=== PATIENT | female | born 1990 | race Caucasian/White ===

== ENCOUNTER → 2023-08-15 19:11 | Outpatient (CLI) | payer MEDICAID, SELFPAY ==
--- NOTE | 2023-08-15 | DI.RAD_ITS ---
Exam(s) XR FOOT RT COMPLETE EXAM: XR FOOT RT COMPLETE CLINICAL HISTORY: ICD-10: M79.0671: PAIN IN THE RIGHT FOOT. TECHNIQUE: 2D digital imaging was performed. Three views. COMPARISON: No exams were available for comparison FINDINGS: BONES: No acute fracture is present. No bony destructive lesion is seen. JOINTS: No dislocation present. SOFT TISSUE: Normal. IMPRESSION: Unremarkable radiographs of the right foot. DATA REPOSITORY: RADIATION DOSE DELIVERED:
--- NOTE | 2023-08-15 19:49 | DI.VRAD_ITS ---
PROCEDURE INFORMATION: Exam: XR Right Foot Exam date and time: 08/15/2023 7:04 PM Age: 33 years old Clinical indication: Right; Patient HX: Foot pain, no trauma TECHNIQUE: Imaging protocol: Radiologic exam of the right foot. Views: 3 or more views. COMPARISON: No relevant prior studies available. FINDINGS: Bones/joints: No fracture. No dislocation. No bony erosion or destructive change. Soft tissues: No soft tissue air. No radiopaque foreign bodies. IMPRESSION: No acute osseous abnormality. If symptoms persist, follow-up imaging is advised. Dictated and Authenticated by: Miller Araujo MD. Ordering:DUNG DAVISON MD
== END ==
PROVIDERS: Visit Provider Nurse Practitioner Family
DX: M79.671 Pain in right foot (principal)
CPT/HCPCS: 73630

== ENCOUNTER 2024-03-26 10:59 | Emergency (ER) | payer MEDICAID, SELFPAY ==
[2024-03-26] VITALS (23 sets, daily range): BP systolic 98–139; BP diastolic 32–106; PULSE 61–95; RESP 14–27; TEMP 36.5–36.6; O2SAT 99–100
--- NOTE | 2024-03-26 10:45 | RT.EKG_ITS ---
APPROVED REPORT Exam: Resting ECG Reason for Exam: Syncope Patient Location: E HR:88 bpm ECG Measurements Heart Rate 88 AXIS ME 149 P 76 QRSd 79 QRS 67 QT 377 T 43 QTc 456 Conclusion Sinus rhythm 88 normal axis no stemi
--- NOTE | 2024-03-26 11:22 | W.ED.GENAD ---
Discharge Plan Disposition Patient Disposition: Transfer-Acute Inpatient Care Specific Acute Inpt Facility: [facility] Discharge Details Clinical Impression: Cardiac asystole, Syncope Primary Care Provider: Unknown,Unknown ED Provider: Barbara Roland Home Meds and New Rx's Prescriptions: No Action No Known Home Meds Discharge Data Discharge Date/Time-TO BE ENTERED AT DEPARTURE: 03/26/24 14:01 HPI General Date/Time Provider Initiated Documentation: 03/26/24 11:02. HPI Narrative: Irma is a 33year old female who presents to the emergency department today for evaluation of syncope. She reports that she fell on her way into work today, landing on her left elbow and left knee. She sustained abrasions to these. When she got into work she sat down to have a coworker apply a Band-Aid to her elbow. She felt suddenly very dizzy (no other symptoms acccompanying this) and passed out, approximately 30 sec loss of consciousness. He woke up on the floor, is currently reporting only a mild frontal headache. No dizziness while at rest, vision changes, nausea/vomiting, neck pain, chest pain, shortness of breath, cough, congestion, palpitations, abdominal pain, change in p.o. intake, change in bowel or bladder function, change in menstrual cycle, other extremity injuries. Did not eat breakfast this morning, says this is not unusual for her. Denies history of syncope or episodes of dizziness previously. No observed seizure activity reported by EMS. Past medical history is significant for recent head injury diagnosed as concussion at [facility] in [place]. Physical exam remarkable for dizziness with standing. Patient is alert and oriented, in no acute distress. No scalp injury noted. PERRL, EOMs intact. No hemotympanums. Male nerves II through XII intact as tested. Normal finger-to- finger, heel-falk; 5 out of 5 muscle strength to upper and lower extremities. Easy work of breathing, lung sounds clear bilaterally. Normal heart sounds. Abdomen soft, nondistended, nontender to palpation. D/dx includes but is not limited to: Cardiac arrhythmia, dehydration, vasovagal syncope, electrolyte imbalance, orthostatic hypotension, early , viral illness such as COVID-19, intracranial hemorrhage secondary to hitting head on ground during syncope I independently interpreted the following tests: EKG reassuring, normal sinus rhythm rate 88, no changes consistent with acute ischemia. A repeat EKG was performed after asystole, normal sinus rhythm rate 77. CBC, CMP, troponins (<4) all reassuring. TSH within normal limits. hCG negative. 1130: After having IV placed Irma became pale and dizzy, was laid back and lost consciousness. According to Clari Love RN, pt was pulseless and breathing agonally for a few seconds; patient had asystole for approximately 30 seconds based on telemetry. Episode spontaneously resolved before chest compressions could begin. She currently is awake and alert, appears pale but interactive. Discussed case with Dr. Alexander, button breaker operator at [facility]. He advises patient to be sent ED to ED for further evaluation, advises keeping atropine on hand and defibrillator pads in place. Reviewed plan of care with patient and her mother, they are agreeable with plan for transfer. Pt transferred by ambulance with relays draftsperson. Related Data Home Medications ?Medication ?Instructions ?Recorded ?Confirmed Unknown [No Known Home Meds] 03/26/24 03/26/24 Allergies Allergy/AdvReac Type Severity Reaction Status Date / Time Penicillins Allergy Severe Anaphylaxis Verified 03/26/24 12:14 General Stated Complaint: [id number] NIVIA: 3 Review of Systems Narrative: see HPI Exam Const General: cooperative, healthy appearing, comfortable, no acute distress, well developed and well groomed Nutritional Appearance: average body habitus Orientation: alert and oriented x3 HENMT Head: normal to inspection, no palpable skull fracture and normocephalic Ears: hearing grossly normal bilaterally, external ears normal and TM's normal bilaterally General nose exam: external nose normal Face and sinus: normal facial exam Mouth: oral mucosae normal Throat: posterior oropharynx normal Neck Neck: normal visual inspection and full ROM Resp Effort & Inspection: normal respiratory effort and able to speak in complete sentences Auscultation: clear to auscultation bilaterally Cardio Rate: regular rate Rhythm: regular rhythm GI Inspection: normal to inspection and non-distended Palpation: soft, not firm and nontender Skin General skin exam: no rashes or lesions noted Neuro General: patient alert, patient oriented x3, tone normal, moves all extremities, no meningeal signs, no focal motor deficits and CN's II-XI intact bilaterally Cranial Nerves: CN's II-XI intact bilaterally, PERRL, EOM intact bilaterally, no nystagmus and facial strength normal Cognition: normal cognition Speech: speech normal Motor: muscle tone normal throughout and strength 5/5 throughout Coordination: [id number] test normal and bbgc-[id number]-cach test normal Course Vital Signs Vital signs: Vital Signs Pulse 90 03/26/24 11:01 Respiratory Rate 15 03/26/24 11:01 Blood Pressure 139/106 H 03/26/24 11:01 Pulse Oximetry 100 03/26/24 11:01 Temperature 36.5 C 03/26/24 11:10 Pulse 90 03/26/24 11:01 Respiratory Rate 15 03/26/24 11:01 Blood Pressure 139/106 H 03/26/24 11:01 Blood Pressure Position Sitting 03/26/24 11:01 Pulse Oximetry 100 03/26/24 11:01 Oxygen Delivery Method Room Air 03/26/24 11:01 Oxygen Flow Rate 0 03/26/24 11:01 Medical Decision Making Quality:SDOH Health Related Social Needs: No Data to Display PFSH All Active Problems (Updated 03/26/24 @ 13:10 by Barbara Giraldo) Syncope (Chronic) Cardiac asystole (Acute) Social History Smoking/Tobacco Use Status: Never Smoking risk assessment performed?: Yes Alcohol Intake: never Drug use: Never Substance use type: does not use Housing: apartment Do you feel safe at home: Yes Do you feel safe in your relationship?: No
--- NOTE | 2024-03-26 11:30 | RT.EKG_ITS ---
APPROVED REPORT Exam: Resting ECG Reason for Exam: syncope after IV Patient Location: E HR:77 bpm ECG Measurements Heart Rate 77 AXIS AK 156 P 81 QRSd 85 QRS 63 QT 410 T 48 QTc 464 Conclusion Sinus rhythm 77 normal axis no stemi
--- NOTE | 2024-03-26 11:32 | W.EDPROG ---
Date of service: 03/26/24 Time of Service: 11:32 Medical Decision Making Case discussed with nurse practitioner. A [id number] evaluation was performed by me secondary to medical complexity. Patient is an otherwise healthy 33-year-old female without significant past medical history. She presented for evaluation of a syncopal episode. While in the emergency department, she went unresponsive and was noted on telemetry, that the patient had a fairly notable length of asystole. Nurse at bedside was unable to feel a pulse. When we arrived in the room, the patient appeared rubin and was awake. Heart rate was noted to be significantly low in the 30s. Although the patient had just received an IV, the IV had been in place for several seconds perhaps minutes before this episode took place. Although this could be vasovagal, it is highly concerning given the prolonged nature of the systole. Given this, cardiology at [facility] was consulted and the patient will be transferred there for further emergent evaluation. Quality:SDOH Health Related Social Needs: No Data to Display Critical Care Time Critical Care Time Critical Care Time: Yes Total Critical Care Time: 33 Attestation: CRITICAL CARE Upon my evaluation, this patient had a high probability of imminent or life-threatening deterioration due to cardiac dysrhythmia which required my direct attention, intervention, and personal management. I have personally provided 33 minutes of critical care time exclusive of time spent on separately billable procedures. Time includes review of laboratory data, radiology results, discussion with consultants, and monitoring for potential decompensation. Interventions were performed as documented above Discharge Plan Disposition Patient Disposition: Transfer-Acute Inpatient Care Specific Acute Inpt Facility: [facility] Discharge Details Clinical Impression: Cardiac asystole, Syncope ED Provider: Barbara Roland Home Meds and New Rx's Prescriptions: No Action No Known Home Meds
--- NOTE | 2024-03-26 11:36 | DI.RAD_ITS ---
Exam(s) XR CHEST 1V IN DI DEPT EXAM: XR CHEST 1V IN DI DEPT CLINICAL HISTORY: syncope TECHNIQUE: 2D digital imaging was performed of the chest. One image was obtained. An AP view was ob tained. COMPARISON: No exams were available for comparison FINDINGS: MEDIASTINUM: Normal. HEART: Normal. PULMONARY VASCULATURE: Normal. LUNGS: Clear. PLEURAL SPACE: No pleural effusion or pneumothorax. BONE:Within normal limits for the patient's age. OTHER FINDINGS:Normal. IMPRESSION: No acute pulmonary findings. DATA REPOSITORY: RADIATION DOSE DELIVERED:
[2024-03-26 11:44] LABS: Abs Immature Grans 0.02 10^3/uL (0.0-0.06); Absolute Basophil Count 0.05 10^3/uL (0.0-0.2); Absolute Lymphocyte Count 1.44 10^3/uL (1.2-3.4); Absolute Monocyte Count 0.63 10^3/uL (0.1-0.8); Absolute Neutrophil Count 5.33 10^3/uL (1.2-6.7); Basophils % 0.7 %; Eosinophils % 1.3 %; HCT 44.3 % (36.0-46.0); HGB 14.4 g/dL (11.2-15.7); Immature Grans % 0.3 %; MCH 30.4 pg (27.0-33.0); MCHC 32.5 % (32.0-36.0); MCV 94 fL (80-95); MPV 9.3 fL (8.0-11.0); Monocytes % 8.3 %; Neutrophils % 70.4 %; Platelet Count 332 10^3/uL (130-400); RBC 4.73 10^6/uL (3.93-5.22); RDW-SD 41.7 fL; WBC 7.57 10^3/uL (4.4-10.8)
--- NOTE | 2024-03-26 11:52 | DI.CT_ITS ---
Exam(s) CT HEAD WO EXAM: CT HEAD WO CLINICAL HISTORY: head strike after syncope. TECHNIQUE: Imaging Protocol: Axial computed tomography images with coronal and sagittal reformatted images were created and reviewed COMPARISON: No exams were available for comparison FINDINGS: Ventricles and Extra axial spaces: Normal in size and morphology for the patient's age. Hemorrhage: None. Cerebral parenchyma: Normal. Midline shift: None. Brainstem/Cerebellum: Normal. Calvarium: Normal. Visualized Paranasal sinuses/Mastoids: Clear. Soft Tissues: Unremarkable. IMPRESSION: No acute intracranial process. RADIATION DOSE DELIVERED: 824.77mGy.cm Total DLP DATA REPOSITORY: All CT scans at this facility are submitted to the National Radiology Data Registry (NRDR) Dose Index Registry (DIR) with the [employer] (A[employer]). RADIATION OPTIMIZATION: All CT scans at this facility use at least one of these dose optimization te chniques: automated exposure control; mA and/or kV adjustment per patient size (includes targeted exa ms where dose is matched to clinical indication); or iterative reconstruction.
[2024-03-26 11:59] LABS: HCG Qual (Serum) Negative
[2024-03-26 12:17] LABS: ALT 19 U/L (14-59); AST 11 U/L (15-37); Albumin 3.8 g/dL (3.4-5.0); Alkaline Phosphatase 65 U/L (46-116); Anion Gap 8.1 mmol/L (3-11); BUN 8 mg/dL (7-18); Bilirubin, Total 0.23 mg/dL (0.2-1.0); CO2 27.9 mmol/L (21.0-32.0); CREATININE 0.8 mg/dL (0.55-1.02); Calcium 8.7 mg/dL (8.5-10.1); Chloride 107 mmol/L (98-107); Estimated GFR 100.33 (mL/min/1.73m2); Glucose 114 mg/dL (74-106); Sodium 143 mmol/L (136-145); Troponin I < 4 ng/L (<or=51)
[2024-03-26 12:50] LABS: Creatine Kinase 60 U/L (26-192); TSH 0.74 uIU/mL (0.36-3.74)
[2024-03-26 12:54] LABS: Troponin I < 4 ng/L (<or=51)
== END 2024-03-26 14:01 | disposition short-term general hospital (02) ==
LOC: ER 14:18
PROVIDERS: Emergency Medicine; Emergency Provider Nurse Practitioner Family
DX: I46.9 Cardiac arrest, cause unspecified (principal); R55 Syncope and collapse; S50.312A Abrasion of left elbow, initial encounter; S80.212A Abrasion, left knee, initial encounter; W18.39XA Other fall on same level, initial encounter; Y93.89 Activity, other specified; Y92.89 Other specified places as the place of occurrence of the external cause
CPT/HCPCS: 00123; 80053; 82550; 82962; 87426; 93005; 99285; 70450; 71045; 83735; 84443; 84484; 84703; 85025; 93010

== ENCOUNTER 2024-05-10 10:27 | Observation (INO) | payer MEDICAID, SELFPAY ==
[2024-05-10] VITALS (27 sets, daily range): BP systolic 93–136; BP diastolic 43–82; PULSE 81–109; RESP 13–26; TEMP 36–37.3; O2SAT 97–100
--- NOTE | 2024-05-10 10:30 | RT.EKG_ITS ---
APPROVED REPORT Exam: Resting ECG Reason for Exam: dizziness Patient Location: E HR:86 bpm ECG Measurements Heart Rate 86 AXIS IN 136 P 32 QRSd 76 QRS 71 QT 379 T 20 QTc 453 Conclusion Sinus rhythm...normal P axis, V-rate 60- 99
[2024-05-10 10:58] LABS: Abs Immature Grans 0.02 10^3/uL (0.0-0.06); Absolute Basophil Count 0.07 10^3/uL (0.0-0.2); Absolute Eosinophil Count 0.26 10^3/uL (0.0-0.7); Absolute Lymphocyte Count 1.93 10^3/uL (1.2-3.4); Absolute Monocyte Count 0.65 10^3/uL (0.1-0.8); Absolute Neutrophil Count 4.52 10^3/uL (1.2-6.7); Basophils % 0.9 %; Eosinophils % 3.5 %; Immature Grans % 0.3 %; Lymphocytes % 25.9 %; MCH 30.9 pg (27.0-33.0); MCHC 33.3 % (32.0-36.0); MCV 93 fL (80-95); MPV 9.3 fL (8.0-11.0); Monocytes % 8.7 %; Neutrophils % 60.7 %; Platelet Count 349 10^3/uL (130-400); RBC 2.91 10^6/uL (3.93-5.22); RDW 12.2 % (11.7-14.6); WBC 7.45 10^3/uL (4.4-10.8)
--- NOTE | 2024-05-10 10:58 | ED.GENADUL_ITS ---
Discharge Plan Disposition Patient Disposition: Admit to [facility] Discharge Details Clinical Impression: Syncope, Anemia due to blood loss, acute, Acute GI bleeding Admit Date/Time: 05/10/24 11:44 Admit Provider: Darien Rodríguez Attending Provider: Darien Rodríguez Primary Care Provider: None,None ED Provider: Jovanni Perez Discharge Data Discharge Date/Time-TO BE ENTERED AT DEPARTURE: 05/10/24 12:21 HPI General Mode of arrival: ambulatory . Date/Time Provider Initiated Documentation: 05/10/24 10:33 . Limitations to Documentation: no limitations . Information obtained by: patient and family . HPI Narrative: 33-year-old female presents with chief complaint of dizziness. Patient was seen here in the emergency department after syncopal episode 03/26/2024. Syncope apparently it happened after slip and fall at work and while having her elbow bandaged. Here in the emergency department she had a witnessed sinus pause that was prolonged. She was transferred to [facility] for further cardiac evaluation. There she had an echocardiogram that was reassuring. She was seen by cardiology and observed in the CDU. It was felt that her episode was vasovagal syncope. She was discharged with plan for Zio patch monitoring which has not yet been performed. She notes since that time symptoms did seem to improve somewhat over initially. However over the past week she has noticed intermittent dizziness worse with standing for prolonged periods and improved with sitting and lying down. She also notes new onset of rectal bleeding over the past 1 week. She notes with every bowel movement she has bright red blood per rectum. She has noticed recently some clots mixed in with the bloody stool. She is also menstruating. She has not had any recurrent syncopal episodes but has had presyncope. She denies chest pain or shortness of breath. No abdominal pain. She has had some mild rectal discomfort. Patient was seen at outside clinic this week and found to have a hemorrhoid. It was unclear during that visit if that was the source of her rectal bleeding. Related Data Home Medications ?Medication ?Instructions ?Recorded ?Confirmed Unknown [No Known Home Meds] 03/26/24 05/10/24 Allergies Allergy/AdvReac Type Severity Reaction Status Date / Time Penicillins Allergy Severe Anaphylaxis Verified 05/10/24 10:58 General Stated Complaint: Dizzy/Sync NIVIA: 3 Review of Systems All systems reviewed & are unremarkable except as noted in HPI and below Constitutional Constitutional: Denies fever(s) Gastrointestinal Gastrointestinal: Reports as per HPI and Denies abdominal pain Exam Const General: cooperative and no acute distress [facility] Mouth: moist mucous membranes Eyes Conjunctivae: normal conjunctivae Sclera: normal sclerae Neck Neck: trachea midline Resp Auscultation: clear to auscultation bilaterally, no rales, no rhonchi and no wheezes Cardio Rate: regular rate and not tachycardic Rhythm: regular rhythm GI Palpation: soft, not firm, no guarding, no masses, not rigid and nontender Rectal Exam - female: visual inspection normal (performed with female RN change management administrator present ) Other: no bleeding evident on external exam Skin General skin exam: pallor Neuro General: patient alert, patient awake, patient oriented x3 and tone normal Extrem General: no edema Psych Appearance: grossly normal Mental Status: mental status grossly normal Course Vital Signs Vital signs: Vital Signs Pulse 93 H 05/10/24 10:32 Respiratory Rate 15 05/10/24 10:32 Blood Pressure 136/46 L 05/10/24 10:32 Pulse Oximetry 100 05/10/24 10:32 Temperature Source Tympanic 05/10/24 10:32 Pulse 93 H 05/10/24 10:32 Respiratory Rate 16 05/10/24 10:42 Respiratory Effort Normal 05/10/24 10:42 Respiratory Depth Normal 05/10/24 10:42 Respiratory Pattern Normal 05/10/24 10:42 Blood Pressure 136/46 L 05/10/24 10:32 Blood Pressure Position Supine 05/10/24 10:32 Pulse Oximetry 100 05/10/24 10:32 Oxygen Delivery Method Room Air 05/10/24 10:32 Oxygen Flow Rate 0 05/10/24 10:32 Pain Level 0 05/10/24 10:32 Medical Decision Making 1103 --33-year-old female here with presyncope, bright red blood per rectum with clots over the past 1 week. Patient is hemodynamically stable. She does appear pale. Of note, patient was seen here in the Emergency Department 03/26/2024 and transferred to [facility] for cardiac workup for syncope and subsequent systolic pause. Workup at [facility] was nondiagnostic and presentation was thought to be secondary to vasovagal episodes. Screening EKG was reviewed and interpreted by me: Please report, sinus rhythm 86 bpm, normal axis, nondiagnostic. -- Labs reviewed and anemia noted -- OSH medical records were reviewed-- discharge summary from recent [facility] hospitalization reviewed. -- I spoke with Dr. Rodríguez, director of first impressions surgeon, discussed ED presentation and course. He will admit the patient with plan to scope. DX: acute GI bleeed, acute anemia due to GI bleed, syncope Lab Data Lab results reviewed: Yes I reviewed the patient's lab results. Quality:SDOH Health Related Social Needs: Health related social needs education (Z55.6) PFSH All Active Problems (Updated 05/22/24 @ 07:22 by Jovanni Perez MD) Acute GI bleeding (Acute) Anemia due to blood loss, acute (Acute) Syncope (Chronic) Medical History (Updated 05/22/24 @ 07:22 by Jovanni Perez MD) Gastrointestinal hemorrhage Surgical History (Updated 05/13/24 @ 13:28 by Anita Arredondo) History of esophagogastroduodenoscopy (EGD) (~05/2024) History of colonoscopy (~05/13/24) Social History Smoking/Tobacco Use Status: Never Smoking risk assessment performed?: Yes Alcohol Intake: never Drug use: Never Substance use type: does not use Housing: apartment Do you feel safe at home: Yes Do you feel safe in your relationship?: No
[2024-05-10 11:17] LABS: ALT 16 U/L (14-59); AST 12 U/L (15-37); Albumin 3.1 g/dL (3.4-5.0); Alkaline Phosphatase 53 U/L (46-116); Anion Gap 7.4 mmol/L (3-11); BUN 9 mg/dL (7-18); CO2 28.6 mmol/L (21.0-32.0); CREATININE 0.8 mg/dL (0.55-1.02); Calcium 7.6 mg/dL (8.5-10.1); Chloride 107 mmol/L (98-107); Estimated GFR 100.33 (mL/min/1.73m2); Glucose 92 mg/dL (74-106); Magnesium 1.9 mg/dL (1.8-2.4); Potassium 3.6 mmol/L (3.5-5.1); Sodium 143 mmol/L (136-145); Total Protein 6.3 g/dL (6.4-8.2); Troponin I 5 ng/L (<or=51)
--- NOTE | 2024-05-10 11:46 | W.PM.HP.N ---
Date of service: 05/10/24 Time of Service: 11:46 Assessment and Plan Assessment and plan (1) Gastrointestinal hemorrhage: Status: Chronic Assessment and plan: It is challenging to say exactly where the blood is coming from, although she does have some signs of hemorrhoid disease, I would not expect hemoglobin all the way down to 9 from simple hemorrhoids in an otherwise young healthy person. I suppose this could be compounded by menstruation, although it is difficult to say based on her exam at the bedside. Although I do not see any compelling reason to transfuse her at this point, certainly her history of syncope or near syncope is important. For now, we will plan to repeat a hemoglobin in the morning, and transfuse if needed. If she has any other signs of active bleeding, then it is probably in her best interest to undergo EGD and colonoscopy prior to discharge. History of Present Illness History of Present Illness Chief Complaint: Anemia Narrative: Irma is 33 years old. She came to the emergency department today because of feeling lightheaded and dizzy. She says this has been going on for several days and getting worse. And upon review of systems, it sounds like this is preceded by some blood associated with her bowel movements. Irma tells me she had been feeling about in her usual state of health until Monday of last week when she developed a little bit of abdominal discomfort and cramping that seem consistent with previous episodes of menstruation. She thinks she started her period on Monday, or perhaps Monday. It sounds like around that time, or maybe into Monday she noticed that she might be having some blood associated with her stools as well. She noticed the blood in the toilet, and thinks the first time was after a bowel movement, but she was not certain if it was bleeding from her menstruation. This occurred about 2 or 3 more times over the course of a day, and it sounds like maybe Monday or Monday she discussed this with her mother. Mom suggested that she use a tampon to see if that could isolate menstrual blood from other bleeding. She cannot recall whether or not this actually worked. She did go to an urgent care sometime earlier this week, and especially understands, she was diagnosed with a hemorrhoid. She was told that she would have outpatient blood work, but that did not occur. She started becoming more fatigued, and a little bit lightheaded, and she was worried that she might pass out over the past 48 hours. That was the real reason that she came to the emergency department. This is all little bit confounded by an ER visit that occurred at the end of March. She tells me at that time, she was on her way to work when she thinks she slipped on some ice. She had a contusion on her left elbow, and perhaps a little bit of bleeding that one of her coworkers was helping to take care of when she had a syncopal episode. They called 911, and she was brought to the emergency department by ambulance. She remembers waking up in the ambulance and coming to the emergency department. She tells me that when she was having blood drawn in the emergency department, and an IV established she felt lightheaded and dizzy, then passed out again. At that time, the ER nurse was also concerned about some asystole on the monitor that was associated with the episode. They estimate that she was asystolic for about 30 seconds. At that time, the emergency department contacted [facility] and discussed it with her rubber heel and sole press tender. She was transferred to [facility] for observation. She underwent an echocardiogram which appears normal, and was observed overnight. She was discharged the next day, and was supposed to have a classroom monitor, although that has not yet occurred. The diagnosis at the time of discharge was vasovagal response resulting in syncope. Her and her mom tell me that they have not yet undergone the cardiac monitoring because the order was placed incorrectly. Review of systems is otherwise significant for headaches, but otherwise she feels fine. There is no clear family history of GI inflammatory diseases such as Crohn's disease or ulcerative colitis. She has never had any abdominal surgeries. Aside from the overnight stay at [facility], she does not have any other hospitalizations. She is allergic to penicillin Review of Systems Constitutional Constitutional: Denies chills, Reports fatigue, Denies fever(s), Reports headache(s) and Reports lethargy Eyes Eyes: Reports system reviewed and no additional complaints, except as documented ENT Ears, Nose, Mouth, and Throat: Reports system reviewed and no additional complaints, except as documented, Reports dizziness and Reports headache(s) Cardiovascular Cardiovascular: Denies chest pain and Denies dyspnea Respiratory Respiratory: Denies chest congestion, Denies cough and Denies dyspnea Gastrointestinal Gastrointestinal: Denies abdominal pain, Denies bloating, Reports hematochezia, Denies dyspepsia, Denies heartburn, Denies nausea and Denies vomiting Genitourinary Genitourinary: Reports system reviewed and no additional complaints, except as documented Neurologic Neurologic: Reports dizziness and Reports headache(s) Psychiatric Psychiatric: Reports system reviewed and no additional complaints, except as documented Endocrine Endocrine: Reports fatigue Hematologic/Lymphatic Hematologic/Lymphatic: Denies easy bleeding and Denies easy bruising PFSH All Active Problems (Updated 05/10/24 @ 17:11 by Darien Rodríguez MD) Gastrointestinal hemorrhage (Chronic) Social History Smoking/Tobacco Use Status: Never Smoking risk assessment performed?: Yes Alcohol Intake: never Drug use: Never Substance use type: does not use Housing: apartment Do you feel safe at home: Yes Do you feel safe in your relationship?: No Meds Allergies and Home Medications Allergies Allergy/AdvReac Type Severity Reaction Status Date / Time Penicillins Allergy Severe Anaphylaxis Verified 05/10/24 10:58 Home Medications ?Medication ?Instructions ?Recorded ?Confirmed ?Type Unknown [No Known Home Meds] 03/26/24 05/10/24 History Exam Const General: cooperative and no acute distress Nutritional Appearance: thin Orientation: awake and oriented x3 HENMT Head: normal to inspection Eyes General: appearance normal, both eyes and all related structures Neck Neck: normal visual inspection, full ROM and no lymphadenopathy Resp Effort & Inspection: normal respiratory effort and able to speak in complete sentences Auscultation: clear to auscultation bilaterally Cardio Rate: regular rate Rhythm: regular rhythm Heart Sounds: S1 normal and S2 normal GI Inspection: normal to inspection and non-distended Palpation: soft, no guarding and nontender Auscultation: normal bowel sounds Rectal Exam - female: visual inspection normal, No fissure, heme positive stool, hemorrhoids and No tenderness Skin General skin exam: pallor Results Labs 05/10/24 10:49 05/10/24 10:49 Labs: Laboratory Results - last 24 hr 05/10/24 05/10/24 10:49 10:55 WBC 7.45 RBC 2.91 L Hgb 9.0 L Hct 27.0 L MCV 93 MCH 30.9 MCHC 33.3 RDW 12.2 Plt Count 349 MPV 9.3 Immature Gran % 0.3 Neutrophils % 60.7 Lymphocytes % 25.9 Monocytes % 8.7 Eosinophils % 3.5 Basophils % 0.9 Nucleated RBC % 0.0 Absolute Neutrophils 4.52 Absolute Lymphocytes 1.93 Absolute Monocytes 0.65 Absolute Eosinophils 0.26 Absolute Basophils 0.07 Sodium 143 Potassium 3.6 Chloride 107 Carbon Dioxide 28.6 Anion Gap 7.4 BUN 9 Creatinine 0.8 Est GFR (CKD-EPI 2020) 100.33 Glucose 92 Calcium 7.6 L Magnesium 1.9 Total Bilirubin 0.20 AST 12 L ALT 16 Alkaline Phosphatase 53 Troponin I 5 Total Protein 6.3 L Albumin 3.1 L ABO/Rh O Positive Antibody Screen NEGATIVE Last Vital Signs Pulse 93 H 05/10/24 10:32 Resp 16 05/10/24 10:42 BP 136/46 L 05/10/24 10:32 Pulse Ox 100 05/10/24 10:32 Time Spent Time spent with Patient: >75 minutes Time was spent: preparing to see the patient(eg.review tests), obtaining and/or reviewing separately otained hiistory, ordering medications,tests, procedures, referring, communicating with other health child care development specialist, indepentently interpreting results, counseling the patient and care coordination
--- NOTE | 2024-05-10 12:14 | W.PC.ACHO ---
Registration Status: Primary Language: Preferred Language: ED Information & Data Chief Complaint Dizzy/Sync 05/10/24 11:06 Triage Note Poor historian. Fell, hit 05/10/24 10:32 her head in Nov had a concussion. Was sent to [facility] [place] , was there overnight. Dizziness/lightheaded has been happening all week, got worse today. Has had recent rectal bleed, has had clots in the toilet. Nausea ( slight), no abd pain. Most Recent Vital Signs Temperature Source Tympanic 05/10/24 10:32 Pulse 93 H 05/10/24 10:32 Respiratory Rate 16 05/10/24 10:42 Respiratory Effort Normal 05/10/24 10:42 Respiratory Depth Normal 05/10/24 10:42 Respiratory Pattern Normal 05/10/24 10:42 Blood Pressure 136/46 L 05/10/24 10:32 Blood Pressure Position Supine 05/10/24 10:32 Pulse Oximetry 100 05/10/24 10:32 Oxygen Delivery Method Room Air 05/10/24 10:32 Oxygen Flow Rate 0 05/10/24 10:32 Pain Level 0 05/10/24 10:32 Allergies Penicillins Allergy (Severe, Verified 05/10/24 10:58) Anaphylaxis Pt reported deathly allergic IV IV Catheter Type [Left Saline Lock Antecubital] IV Catheter Gauge [Left 18 Antecubital] Diagnostics 05/10/24 05/10/24 05/10/24 Range/Units 11:46 10:55 10:49 WBC 7.45 (4.4-10.8) 10^3/uL RBC 2.91 L (3.93-5.22) 10^6/uL Hgb 9.0 L (11.2-15.7) g/dL Hct 27.0 L (36.0-46.0) % MCV 93 (80-95) fL MCH 30.9 (27.0-33.0) pg MCHC 33.3 (32.0-36.0) % RDW 12.2 (11.7-14.6) % Plt Count 349 (130-400) 10^3/uL MPV 9.3 (8.0-11.0) fL Immature Gran % 0.3 % Neutrophils % 60.7 % Lymphocytes % 25.9 % Monocytes % 8.7 % Eosinophils % 3.5 % Basophils % 0.9 % Nucleated RBC % 0.0 (0.0-0.3) % Absolute Neutrophils 4.52 (1.2-6.7) 10^3/uL Absolute Lymphocytes 1.93 (1.2-3.4) 10^3/uL Absolute Monocytes 0.65 (0.1-0.8) 10^3/uL Absolute Eosinophils 0.26 (0.0-0.7) 10^3/uL Absolute Basophils 0.07 (0.0-0.2) 10^3/uL Sodium 143 (136-145) mmol/L Potassium 3.6 (3.5-5.1) mmol/L Chloride 107 (98-107) mmol/L Carbon Dioxide 28.6 (21.0-32.0) mmol/L Anion Gap 7.4 (3-11) mmol/L BUN 9 (7-18) mg/dL Creatinine 0.8 (0.55-1.02) mg/dL Est GFR (CKD-EPI 2020) 100.33 (mL/min/1.73m2) Glucose 92 (74-106) mg/dL Calcium 7.6 L (8.5-10.1) mg/dL Magnesium 1.9 (1.8-2.4) mg/dL Total Bilirubin 0.20 (0.2-1.0) mg/dL AST 12 L (15-37) U/L ALT 16 (14-59) U/L Alkaline Phosphatase 53 (46-116) U/L Troponin I Pending 5 (<or=51) ng/L Total Protein 6.3 L (6.4-8.2) g/dL Albumin 3.1 L (3.4-5.0) g/dL ABO/Rh O Positive Antibody Screen NEGATIVE [id number] Documentation POC Urine Test Start: 05/10/24 10:55 Freq: .Urine Test Status: Active Protocol: Activity Type Activity Date Activity User E-sign Co-sign Detail Recorded Client Recorded Date Recorded By Document 05/10/24 12:02 N.CLE [id number] 05/10/24 12:03 NHannahCLE Intake and Output - 24 Hour Total 05/10/24 10:27 thru 05/10/24 10:32 Weight 61.6 kg Falls Risk Assessment History of Falls No History 05/10/24 10:42 Contributing Factors No Factors 05/10/24 10:42 Ambulatory Aids Independent 05/10/24 10:42 Tubes/Lines None 05/10/24 10:42 Gait Evaluation No gait disturbance 05/10/24 10:42 Cognition No cognitive impairment 05/10/24 10:42 Fall Total Score 0 05/10/24 10:42 Level of Risk Standard/Low Risk 05/10/24 10:42 v v v v v v v v v Sending and/or Receiving Nurses: Please use comment section below to note any information pertinent to the patient hand-off not included above. Information / Comments: Report received from: Chris Jackson RN @ [id number]
[2024-05-10 12:17] LABS: Troponin I 4 ng/L (<or=51)
[2024-05-10] MEDS: Pantoprazole 40 MG VIAL IVP (13:07)
[2024-05-10 18:00] LABS: HGB 7.9 g/dL (11.2-15.7)
[2024-05-10 18:11] LABS: Prothrombin Time 10.3 sec (9.1-11.1)
[2024-05-10] MEDS: Normal Saline Flush 10 ML SYR IVP (20:00)
[2024-05-11] VITALS (60 sets, daily range): BP systolic 82–114; BP diastolic 36–70; PULSE 75–108; RESP 16–24; TEMP 36.5–37.6; O2SAT 96–100; BMI 21.2
[2024-05-11 06:24] LABS: HGB 9.4 g/dL (11.2-15.7)
--- NOTE | 2024-05-11 07:12 | ANES.PREOP_ITS ---
General Info Date of Service Date Performed: 05/11/24 Height: 5 ft 7 in Weight: 61.6 kg Body Mass Index (BMI): 21.2 Meds Allergies and Home Medications Allergies Allergy/AdvReac Type Severity Reaction Status Date / Time Penicillins Allergy Severe Anaphylaxis Verified 05/10/24 10:58 Home Medication ?Medication ?Instructions ?Recorded Unknown [No Known Home Meds] 03/26/24 Current Visit Medications: Current Medications Generic Name Dose Route Start Last Admin Trade Name Freq PRN Reason Stop Dose Admin IV Miscellaneous Supplies 1 each 05/10/24 12:15 Iv Access IV DIRECTED ALDEN Morphine Sulfate 2 mg 05/10/24 12:15 Morphine 2 Mg/Ml Syr IVP Q1H PRN PRN Ondansetron HCl 4 mg 05/10/24 12:15 Ondansetron 4 Mg/2 Ml Vial IVP Q4H PRN PRN Pantoprazole Sodium 40 mg 05/10/24 12:15 05/10/24 13:07 Pantoprazole 40 Mg Vial IVP 40 mg DAILY ALDEN Administration Sodium Chloride 0 ml 05/10/24 12:15 Normal Saline Flush 10 Ml Syr IVP PRN PRN Sodium Chloride 0 ml 05/10/24 20:00 05/10/24 20:00 Normal Saline Flush 10 Ml Syr IVP 10 ml BID ALDEN Administration Sodium Chloride 0 ml 05/10/24 12:15 Normal Saline 10 Ml Vial IJ DIRECTED PRN PFSH Active Problems Active Problems: Problem Status Onset Code Gastrointestinal hemorrhage Chronic K92.2 Tobacco Smoking/Tobacco Use Status: Never Alcohol Alcohol Intake: never Substance Use Substance use: Never Substance use type: does not use Vital Signs and Lab Results Vital Signs Most Recent Vital Signs in EMR: Most Recent Vital Signs Temp Pulse Resp BP Pulse Ox 37.2 C 86 16 98/63 L 97 05/11/24 03:19 05/11/24 03:19 05/11/24 03:19 05/11/24 03:19 05/11/24 03:19 Point of Care Results Point of Care Results: POC- Test(urine) Negative 05/10/24 12:02 Lab Results 05/11/24 05:49 05/10/24 10:49 Blood Type / Crossmatch: 2 Antibody Screen NEGATIVE 05/10/24 Crossmatch See Detail 05/10/24 Complete Blood Count: 2 White Blood Count 7.45 10^3/uL (4.4-10.8) 05/10/24 10:49 Red Blood Count 2.91 10^6/uL (3.93-5.22) L 05/10/24 10:49 Hemoglobin 9.4 g/dL (11.2-15.7) L 05/11/24 05:49 Hematocrit 27.0 % (36.0-46.0) L 05/10/24 10:49 Platelet Count 349 10^3/uL (130-400) 05/10/24 10:49 Complete Metabolic Panel: 2 Sodium 143 mmol/L (136-145) 05/10/24 10:49 Potassium 3.6 mmol/L (3.5-5.1) 05/10/24 10:49 Chloride 107 mmol/L (98-107) 05/10/24 10:49 Carbon Dioxide 28.6 mmol/L (21.0-32.0) 05/10/24 10:49 BUN 9 mg/dL (7-18) 05/10/24 10:49 Creatinine 0.8 mg/dL (0.55-1.02) 05/10/24 10:49 Est GFR (CKD-EPI 2020) 100.33 (mL/min/1.73m2) 05/10/24 10:49 Magnesium 1.9 mg/dL (1.8-2.4) 05/10/24 10:49 Calcium 7.6 mg/dL (8.5-10.1) L 05/10/24 10:49 Albumin 3.1 g/dL (3.4-5.0) L 05/10/24 10:49 Glucose 92 mg/dL (74-106) 05/10/24 10:49 Liver Function Panel: 2 Alanine Aminotransferase (ALT/SGPT) 16 U/L (14-59) 05/10/24 10: 49 Aspartate Amino Transf (AST/SGOT) 12 U/L (15-37) L 05/10/24 10: 49 Coagulation Panel: 2 INR International Normalized Ratio 1.0 (0.9-1.1) 05/10/24 17:5 5 Prothrombin Time 10.3 sec (9.1-11.1) 05/10/24 17:55 Cardiac Panel: 2 Troponin I 4 ng/L (<or=51) 05/10/24 Arterial Blood Gas: 2 No Data to Display Venous Blood Gas: 2 No Data to Display Pancreas Panel: 2 No Data to Display Thyroid Panel: 2 No Data to Display Infectious Disease: 2 No Data to Display Blood Cultures: 2 No Data to Display Toxicology Panel: 2 No Data to Display Panel: 2 No Data to Display Anesthesia Assessment and Plan Anesthesia History Personal History: No History of Anesthesia Complications Family History: No Family History of Anesthesia Complications Exercise Tolerance Exercise Tolerance: Metabolic Equivalents>4 Cardiac & Pulmonary Exam Cardiac Exam: Normal S1/S2 Heart Sounds Pulmonary Exam: Clear Bilateral Breath Sounds Implantable Cardiac Device Does patient have a Pacemaker or an ICD?: No Airway Exam Known Difficult Airway: No Mallampati Class: 1 Mouth Opening: Normal (> 3cm) Thyromental Distance: Greater than 3 cm Neck Range of Motion: Full ROM Neck Circumference: Normal Teeth Condition: Normal Dentition Airway Comments: Very narrow mouth, prominent front teeth. ASA Classification ASA Score: ASA 2 Emergency Case?: No NPO Status NPO Status: NPO Clears >2 hours, Solids >8 hours Status Status: Negative HCG Anesthesia Plan Resuscitation Status: Full Code Anesthesia Technique: General Anesthesia Airway Planned: Natural Airway Monitors Used: Standard Monitors Preoperative Comments:: 33 yo female for EGD. presented to ED on 05/10 with dizziness found to be with low Hgb. She was in the ED a few months ago with a syncopate episode and found to have sinus pauses/asystolic events. [place] [facility] [place]. She was recommended to do outpatient cardiac monitoring but she has not completed this yet. She was discharged [place] [facility] [place] with diagnosis of vasovagal. She received 1 unit of PRBCs yesterday. She denies having the same feeling as the time that she had her syncopal episode. Sig PMHx: sinus pauses, otherwise unremarkable. ECHO: LVEF 63%, normal valves. EKG: sinus Denies GERD, Appropriately NPO, currently hungry.
[2024-05-11] MEDS: Pantoprazole 40 MG VIAL IVP (08:01)
[2024-05-11] MEDS: Normal Saline Flush 10 ML SYR IVP ×2 (08:01→19:31)
[2024-05-11] MEDS: Lactated Ringers 1,000 ML 30 ML IV (09:49)
--- NOTE | 2024-05-11 10:19 | W.ANESPOSTOP ---
Postoperative Evaluation Date, Time and Location Date Performed: 05/11/24 Time Performed: 10:19 Patient Location: PACU Vital Signs Most Recent Imported Vital Signs: Most Recent Vital Signs Temp Pulse Resp BP Pulse Ox 37.1 C 86 16 109/65 96 05/11/24 08:00 05/11/24 07:13 05/11/24 07:13 05/11/24 07:13 05/11/24 07:13 Pain Score Most Recent Pain Score: Most Recent Pain Score Pain Level [generalized] 0 05/10/24 17:26 Pain Level 0 05/10/24 15:31 Assessment Mental Status: Awake (Alert & Oriented to Patient Baseline) Airway and Respiratory Function: Patent airway with normal (patient baseline) respiratory exam Cardiovascular Function: Hemodynamically Stable Hydration Status: Adequately Hydrated Nausea & Vomiting: No Nausea or Vomiting Pain: Pt. Denies Any Pain Peripheral Nerve Block: Patient did not receive a nerve block
--- NOTE | 2024-05-11 10:22 | PGE_ITS ---
Date of Service Date of service: 05/11/24 Time of Service: 09:30 Assessment and Plan Assessment and plan (1) Gastrointestinal hemorrhage: Status: Acute Assessment and plan: 33-year-old woman with GI bleeding of unknown etiology or significance. She did get a unit of blood but has not been hemodynamically unstable. Her hemoglobin is up from last night post?transfusion. There has been no more clinical bleeding. I discussed with her about the possibility of nondiagnostic results with upper endoscopy. I did recommend that we proceed with a anoscopy evaluation of inte rnal hemorrhoids which reportedly she has in the event that the EGD is negative. She agrees with this. If there are no findings on EGD or anoscopy, then an elective colonoscopy should be performed to rule out inflammatory bowel disease, and the unlikely but possibility of a colorectal malignancy. Overall plan: EGD, possible anoscopy, possible hemorrhoid banding Subjective Subjective Interval history since last seen: Overnight no more bleeding. Patient did get a unit of blood. Her hemoglobin has come up. Vital signs have been normal. She denies abdominal pain. Exam Narrative Exam Narrative: Gen: Non-toxic, comfortable and interactive. Noticeably pale and somewhat thin. Neuro: Alert and oriented x3 Psych: Good mood and affect. Reasonable insight and understanding into condition. Chest: Non-labored breathing, no wheezing, no visible shortness of breath. Heart: Regular Abdomen: Soft, nondistended and nontender. Objective Last Vital Signs Temp 98.6 F 05/11/24 10:05 Pulse 86 05/11/24 07:13 Resp 16 05/11/24 07:13 BP 109/65 05/11/24 07:13 Pulse Ox 96 05/11/24 07:13 Laboratory Results - last 24 hr 05/10/24 05/10/24 05/10/24 10:49 10:55 11:46 WBC 7.45 RBC 2.91 L Hgb 9.0 L Hct 27.0 L MCV 93 MCH 30.9 MCHC 33.3 RDW 12.2 Plt Count 349 MPV 9.3 Immature Gran % 0.3 Neutrophils % 60.7 Lymphocytes % 25.9 Monocytes % 8.7 Eosinophils % 3.5 Basophils % 0.9 Nucleated RBC % 0.0 Absolute Neutrophils 4.52 Absolute Lymphocytes 1.93 Absolute Monocytes 0.65 Absolute Eosinophils 0.26 Absolute Basophils 0.07 PT INR Sodium 143 Potassium 3.6 Chloride 107 Carbon Dioxide 28.6 Anion Gap 7.4 BUN 9 Creatinine 0.8 Est GFR (CKD-EPI 2020) 100.33 Glucose 92 Calcium 7.6 L Magnesium 1.9 Total Bilirubin 0.20 AST 12 L ALT 16 Alkaline Phosphatase 53 Troponin I 5 4 Total Protein 6.3 L Albumin 3.1 L ABO/Rh O Positive Blood Type Recheck Antibody Screen NEGATIVE Crossmatch See Detail 05/10/24 05/11/24 17:55 05:49 WBC RBC Hgb 7.9 L 9.4 L Hct MCV MCH MCHC RDW Plt Count MPV Immature Gran % Neutrophils % Lymphocytes % Monocytes % Eosinophils % Basophils % Nucleated RBC % Absolute Neutrophils Absolute Lymphocytes Absolute Monocytes Absolute Eosinophils Absolute Basophils PT 10.3 INR 1.0 Sodium Potassium Chloride Carbon Dioxide Anion Gap BUN Creatinine Est GFR (CKD-EPI 2020) Glucose Calcium Magnesium Total Bilirubin AST ALT Alkaline Phosphatase Troponin I Total Protein Albumin ABO/Rh Blood Type Recheck O Positive Antibody Screen Crossmatch Time Spent with Patient Time Spent with Patient: <25 minutes Time was spent: preparing to see the patient(eg.review tests), obtaining and/or reviewing separately otained hiistory, ordering medications,tests, procedures, indepentently interpreting results, counseling the patient and care coordination
--- NOTE | 2024-05-11 10:22 | W.PM.OP ---
Operative Note Operative Note Refer to Anesthesia Record Procedure Description: PROCEDURES PERFORMED: 1. EGD 2. Anoscopy PREOPERATIVE DIAGNOSIS: GI bleeding POSTOPERATIVE DIAGNOSIS: Normal foregut, grade 1 internal hemorrhoids, bile reflux SURGEON: Radha Rogers MD INDICATION FOR PROCEDURE: 33-year-old woman with GI bleeding of unknown etiology or significance. Hemoglobin has stabilized and there is no further clinical evidence of ongoing bleeding. FINDINGS: D2/D3 = normal D1/bulb = normal - no ulcers or inflammation Pylorus = normal Antrum = normal appearance, no ulcers, no inflammation whatsoever, no evidence of recent bleeding (no coffee grounds). There is a significant amount of bile pooled in the stomach. Body = normal appearance, no inflammation. No ulcers. No coffee grounds anywhere. Significant bile was pulled in the stomach. No blood anywhere. Fundus = normal, no polyps Cardia = normal Hiatus = no hiatal hernia Distal esophagus = no inflammation, no esophagitis, no Tapia's, no stricture. Mid esophagus = normal Proximal esophagus/hypopharynx/vocal cords = normal Perianal/perineum = normal External anal orifice = noticeable skin tags, no obvious external hemorrhoids Anal canal = normal Dentate line/distal rectal vault = no visible blood. Formed brown stool noticed. No liquid whatsoever. Grade 1 internal hemorrhoids visualized at all 3 columns. None bleed when manipulated. Internal hemorrhoids NOT felt to be possible bleeding source. SURVEILLANCE-INTERVAL/FOLLOW-UP: Will need an elective colonoscopy to rule out inflammatory bowel disease or a malignancy. Relatively rare to find a definitive cause of gi bleeding with colonoscopy. Specimens: None EBL: None COMPLICATIONS: None Procedure in detail: The patient gave written consent and was in agreement with the indications, the potential risks as well as the benefits of the procedure. The patient was taken to the endoscopy suite and laid on their left side. Anesthesia was given which was tolerated well. We performed a timeout and we are in agreement I started the procedure. A well-lubricated endoscope was gently and carefully advanced down the esophagus, into the stomach the scope was and through the pylorus into the duodenum. The scope was then slowly withdrawn with the above-noted findings/interventions. Next, because of her no findings on EGD, we turned her on her left side. External examination was performed. Findings noted above. A well?lubricated anoscope was introduced gently and slowly with the findings noted above. Overall, nothing was found which would explain her GI bleeding. The patient tolerated the procedure well and was then taken to the PACU. Date of Procedure: 05/11/24
--- NOTE | 2024-05-11 11:58 | NUR.NOTE ---
Nursing Note: pt stated she wants to stay the weekend here in the hospital to do bowel prep as she fears she will mess it up at home. RN educated pt on general bowel prep regimes, pt requested that she stay over night thorough Monday night and go homes Monday after she has recovered from colonoscopy.
--- NOTE | 2024-05-11 16:19 | PDOC.CMIN ---
Date of service: 05/11/24 Time of Service: 16:19 Care Management Initial Assmt Initial Assessment Reason for Hospitalization: GI bleed Functional Status/Living Situation Patient Presentation: Irma was awake and sitting in bed with the HOB elevated when CM met with her. Her mother Nicci is present and standing at her bed side. Irma lives at home with her Mother and 3 siblings. She works at [employer], doesn't drive and frequently uses [facility] or a taxi for transportation. Irma does not have a PCP and is provided with a list of local providers and shares that transportation would be a barrier to get to appointments. Irma and Nicci appear somewhat reluctant to discuss their community needs. Both are unfamiliar and agree to a referral. Nicci states that she is familiar with [facility] and has reached out for help in the past, but always ends up slipping through the cracks. Town of Residence: [facility] Resides with: Parent (Mother Nicci) and Other (younger siblings) Significant Other/Family: Local Natural Supports: Mother and siblings Employment Status: Employed ([employer]) Instrumental Activities of Daily Living (ADLs): Independent Activities/Hobbies/SocialSupport: Enjoys writing. CM provided patient with a journal, adult coloring book and pencils Medications Medication Management: No Issues/Barriers identified Advance Directives Advance Directives: Do you have an Advance Directive: N 08/15/23 18:38 AD On File at [facility]: N 03/26/24 12:52 Date Asked 05/10/24 05/10/24 10:53 AD Date Reviewed COLST On File at [facility] COLST Date Scanned Code Status Resuscitation Status Full Code Portal Pt does not currently have a portal and education provided: Yes Insurance Coverage/Financial Issues Insurance: Medicaid Care Team Visit Care Team Role Provider Type None None Primary Care Provider [facility] STAFF PHYSICIAN Jovanni Perez MD Emergency Provider [facility] STAFF PHYSICIAN Darien Rodríguez MD Admit Provider [facility] STAFF PHYSICIAN Attending Provider Discharge Potential Discharge Needs: Surgical F/U Appt and Other (T-Doc follow up) Anticipated Barriers to Discharge: Medical Status Patient/Family Education Needs: Review discharge instructions, discuss Ask Me Three Transportation: [facility] Transportation: Private vechicle Plan: Irma is being monitored and treated for her GI bleed. Anticipate, pt will discharge home via [facility] private vehicle when medically ready for discharge. Will need a T-doc follow up and recommend establishing care with a PCP of choice. [facility] referral placed. No services are anticipated at this time. CM will follow Social Determinants of Health Screening Social Determinants of Health last assessed: 05/11/24 Will the Patient Participate in the Screening?: Yes Do you worry about having a steady place to live?: no Problems where you live: no known problems In the past 12 months, have you had to go without electric, gas, oil or water in your home?: no Have you or anyone in your house had to go without enough food to eat?: no Has lack of transportation kept you from medical appointments or from doing things needed for daily living?: no Has anyone in your life made you feel unsafe or unsupported?: no How hard is it for you to pay for the very basics like food, housing, medical care, and heating? Would you say it is:: Not hard at all Do you want help finding or keeping work or a job?: I do not need or want help If for any reason you need help with day-to-day activities such as bathing, preparing meals, shopping, managing finances, etc., do you get the help you need?: I don?t need any help How often do you feel lonely or isolated from those around you?: Never Do you speak a language other than [place] Islander at home?: Yes Does the patient want assistance with any of the above?: No Health Related Social Needs Health related social needs: education (Z55.6) PFSH All Active Problems (Updated 05/11/24 @ 11:21 by Gene Rogers MD) Gastrointestinal hemorrhage (Acute) Social History Smoking/Tobacco Use Status: Never Smoking risk assessment performed?: Yes Alcohol Intake: never Drug use: Never Substance use type: does not use Housing: apartment Do you feel safe at home: Yes Do you feel safe in your relationship?: No
[2024-05-12 03:16] VITALS: BP 96/56; PULSE 85; RESP 17; TEMP 37; O2SAT 96
[2024-05-12 07:16] VITALS: BP 103/59; PULSE 88; RESP 18; TEMP 36.8; O2SAT 98
[2024-05-12] MEDS: Normal Saline Flush 10 ML SYR IVP ×2 (09:12→20:38)
--- NOTE | 2024-05-12 10:41 | W.PM.PROGNOT ---
Date of Service Date of service: 05/12/24 Time of Service: 10:00 Assessment and Plan Assessment and plan (1) Gastrointestinal hemorrhage: Status: Acute Assessment and plan: 33-year-old woman with GI bleeding. It has resolved. It is not from the foregut(at least if it was[ie: Dieulafoy lesion], there was no stigmata of recent bleeding). It is not from internal hemorrhoids. Next most common location for source would be her colon however the chance of finding what was bleeding is low. A colorectal malignancy should be ruled out. Inflammatory bowel disease is possible as well. The differential diagnosis definitely includes small bowel etiologies such as a Meckel's diverticulum(ectopic gastric mucosa creating an ileal ulcer). Small bowel tumors and terminal ileum inflammatory bowel disease is also a possible explanation. She is hemodynamically stable. Her hemoglobin is stable. She has no evidence of clinical bleeding. Overall plan: Prep today DVT prophylaxis Colonoscopy tomorrow Subjective Subjective Interval history since last seen: Patient has no complaints. No more bleeding episodes. Exam Narrative Exam Narrative: Gen: Non-toxic, comfortable and interactive Neuro: Alert and oriented x3 Psych: Good mood and affect. Reasonable insight and understanding into condition. Chest: Non-labored breathing, no wheezing, no visible shortness of breath. Heart: Regular Objective Last Vital Signs Temp 98.2 F 05/12/24 07:16 Pulse 88 05/12/24 07:16 Resp 18 05/12/24 07:16 BP 103/59 L 05/12/24 07:16 Pulse Ox 98 05/12/24 07:16 Time Spent with Patient Time Spent with Patient: 25-34 minutes Time was spent: preparing to see the patient(eg.review tests), obtaining and/or reviewing separately otained hiistory, ordering medications,tests, procedures, indepentently interpreting results and counseling the patient
[2024-05-12 10:57] LABS: HCT 30.5 % (36.0-46.0)
[2024-05-12 11:24] VITALS: BP 111/65; PULSE 82; RESP 18; TEMP 36.8; O2SAT 97
--- NOTE | 2024-05-12 11:24 | NUR.NOTE ---
Nursing Note: This RN called provider Ken for clarification on heparin injection scheduled for 10 am 05/12/23. This RN expressed concern that pt is here for bleeding with unknown source, had presented to the ED after fainting in the parking lot at her work, received a bag of RBC 05/10 to improve hemoglobin levels, and was in the hospital for exploratory procedures -EGD and colonoscopy, scheduled for 05/13 am. Provider stated there was no longer any bleed, and he was concerned about pt forming blood clots. Pt has TEDS in place, and gets up to use toilet in room. Provider asked this RN Why are you calling me? and stated I'm concerned that you don't know this, in regards clot prevention vs RN's concerns about bleeding.
[2024-05-12] MEDS: Heparin 5,000 UNITS/ML VIAL 5000 UNITS SC ×2 (11:50→18:34)
[2024-05-12] MEDS: Bisacodyl 5 MG TABEC 20 MG PO (13:05)
[2024-05-12 15:39] VITALS: BP 121/63; PULSE 89; RESP 18; TEMP 36.8; O2SAT 96
[2024-05-12] MEDS: Polyethylene Glycol 3350 238 GM BTL PO (18:01)
[2024-05-12 19:30] VITALS: BP 121/69; PULSE 90; RESP 18; TEMP 37; O2SAT 97
[2024-05-12 20:47] VITALS: BP 116/68; PULSE 82; RESP 18; TEMP 37.2; O2SAT 96
[2024-05-13] MEDS: Heparin 5,000 UNITS/ML VIAL 5000 UNITS SC (02:27)
--- NOTE | 2024-05-13 02:31 | NUR.NOTE ---
Nursing Note: No PLT checked since 05/10/23. Provider Dr Rogers aware. Hospital policy is for PLT to be checked Q48 hours for the dosing she is on for Heparin. Dr Rogers has chosen to disregard this policy, no order for one will be placed, he wants Heparin to be given. Heparin administered, see MAR.
[2024-05-13 04:14] VITALS: BP 107/66; PULSE 81; RESP 18; TEMP 36.5; O2SAT 96
[2024-05-13 07:34] VITALS: BP 100/60; PULSE 99; RESP 16; TEMP 37.2; O2SAT 99
[2024-05-13] MEDS: Normal Saline Flush 10 ML SYR IVP (08:31)
--- NOTE | 2024-05-13 08:48 | PDOC.CMPRO ---
Date of service: 05/13/24 Time of Service: 08:48 Care Management Progress Note Progress Note Text Progress Note Text: Colonoscopy is planned for today. Discharge Potential Discharge Needs: PCP F/U Appt (T-doc follow up) and Surgical F/U Appt (if recommended) Anticipated Barriers to Discharge: None Identified Patient/Family Education Needs: Review discharge instructions, discuss Ask Me Three Transportation: [facility] Plan: Irma is being monitored and treated for her GI bleed. Anticipate, pt will discharge home via [facility] private vehicle when medically ready for discharge. Will need a T-doc follow up and recommend establishing care with a PCP of choice. BRUNO referral placed. No services are anticipated at this time. CM will follow Social Determinants of Health Screening Social Determinants of Health last assessed: 05/13/24 Will the Patient Participate in the Screening?: Yes Do you worry about having a steady place to live?: no Problems where you live: no known problems In the past 12 months, have you had to go without electric, gas, oil or water in your home?: no Have you or anyone in your house had to go without enough food to eat?: no Has lack of transportation kept you from medical appointments or from doing things needed for daily living?: no Has anyone in your life made you feel unsafe or unsupported?: no How hard is it for you to pay for the very basics like food, housing, medical care, and heating? Would you say it is:: Not hard at all Do you want help finding or keeping work or a job?: I do not need or want help If for any reason you need help with day-to-day activities such as bathing, preparing meals, shopping, managing finances, etc., do you get the help you need?: I don?t need any help How often do you feel lonely or isolated from those around you?: Never Do you speak a language other than Armenian at home?: Yes Does the patient want assistance with any of the above?: No Health Related Social Needs Health related social needs: education (Z55.6)
--- NOTE | 2024-05-13 08:51 | W.PM.PROGNOT ---
Date of Service Date of service: 05/13/24 Time of Service: 08:51 Assessment and Plan Assessment and plan (1) Gastrointestinal hemorrhage: Status: Acute Assessment and plan: 33-year-old woman with GI bleeding of unknown etiology. Foregut essentially ruled out. Differential diagnosis is broad and includes midgut as well as hindgut etiologies. Colonoscopy mostly?indicated to rule out colorectal malignancy. Might not find a bleeding source. Overall plan: Colonoscopy Subjective Subjective Interval history since last seen: No events overnight. No clinical changes. No bleeding. Exam Narrative Exam Narrative: Gen: Non-toxic, comfortable and interactive Neuro: Alert and oriented x3 Psych: Good mood and affect. Reasonable insight and understanding into condition. Chest: Non-labored breathing, no wheezing, no visible shortness of breath. Heart: Regular Objective Last Vital Signs Temp 99.0 F 05/13/24 07:34 Pulse 99 H 05/13/24 07:34 Resp 16 05/13/24 07:34 BP 100/60 05/13/24 07:34 Pulse Ox 99 05/13/24 07:34 Laboratory Results - last 24 hr 05/12/24 10:48 Hgb 10.0 L Hct 30.5 L Time Spent with Patient Time Spent with Patient: <25 minutes Time was spent: preparing to see the patient(eg.review tests), obtaining and/or reviewing separately otained hiistory, ordering medications,tests, procedures, referring, communicating with other health point of care specialist, indepentently interpreting results, counseling the patient and care coordination
--- NOTE | 2024-05-13 11:03 | ANES.PREOP_ITS ---
General Info Date of Service Date Performed: 05/13/24 Height: 5 ft 7 in Weight: 61.6 kg Body Mass Index (BMI): 21.2 Surgical Procedure: Operation Date: 05/11/24 09:00 Proposed Procedure Side Surgeon p Gastroscopy Gene Rogers MD Actual Procedure Side Surgeon p Gastroscopy and anoscopy examination Not Applicable Gene Rogers MD Pre-Op Diagnosis Post-Op Diagnosis GI Bleed Normal EGD Operation Date: 05/13/24 11:20 Proposed Procedure Side Surgeon p Colonoscopy Gene Rogers MD Meds Allergies and Home Medications Allergies Allergy/AdvReac Type Severity Reaction Status Date / Time Penicillins Allergy Severe Anaphylaxis Verified 05/10/24 10:58 Home Medication ?Medication ?Instructions ?Recorded Unknown [No Known Home Meds] 03/26/24 Current Visit Medications: Current Medications Generic Name Dose Route Start Last Admin Trade Name Freq PRN Reason Stop Dose Admin Heparin Sodium (Porcine) 5,000 units 05/12/24 10:00 05/13/24 10:02 Heparin 5,000 Units/Ml Vial SC Not Given Q8H ALDEN IV Miscellaneous Supplies 1 each 05/10/24 12:15 Iv Access IV DIRECTED ALDEN Polyethylene Glycol 238 gm 05/12/24 18:00 05/12/24 18:01 Polyethylene Glycol 3350 238 Gm Btl PO 05/13/24 17:59 238 gm DIRECTED ALDEN Administration Sodium Chloride 0 ml 05/10/24 12:15 Normal Saline Flush 10 Ml Syr IVP PRN PRN Sodium Chloride 0 ml 05/10/24 20:00 05/13/24 08:31 Normal Saline Flush 10 Ml Syr IVP 10 ml BID ALDEN Administration Sodium Chloride 0 ml 05/10/24 12:15 Normal Saline 10 Ml Vial IJ DIRECTED PRN PFSH Active Problems Active Problems: Problem Status Onset Code Gastrointestinal hemorrhage Acute K92.2 Tobacco Smoking/Tobacco Use Status: Never Alcohol Alcohol Intake: never Substance Use Substance use: Never Substance use type: does not use Vital Signs and Lab Results Vital Signs Most Recent Vital Signs in EMR: Most Recent Vital Signs Temp Pulse Resp BP Pulse Ox 37.2 C 99 H 16 100/60 99 05/13/24 07:34 05/13/24 07:34 05/13/24 07:34 05/13/24 07:34 05/13/24 07:34 Point of Care Results Point of Care Results: POC- Test(urine) Negative 05/10/24 12:02 Lab Results 05/12/24 10:48 05/10/24 10:49 Blood Type / Crossmatch: 2 Antibody Screen NEGATIVE 05/10/24 Crossmatch See Detail 05/10/24 Complete Blood Count: 2 White Blood Count 7.45 10^3/uL (4.4-10.8) 05/10/24 10:49 Red Blood Count 2.91 10^6/uL (3.93-5.22) L 05/10/24 10:49 Hemoglobin 10.0 g/dL (11.2-15.7) L 05/12/24 10:48 Hematocrit 30.5 % (36.0-46.0) L 05/12/24 10:48 Platelet Count 349 10^3/uL (130-400) 05/10/24 10:49 Complete Metabolic Panel: 2 Sodium 143 mmol/L (136-145) 05/10/24 10:49 Potassium 3.6 mmol/L (3.5-5.1) 05/10/24 10:49 Chloride 107 mmol/L (98-107) 05/10/24 10:49 Carbon Dioxide 28.6 mmol/L (21.0-32.0) 05/10/24 10:49 BUN 9 mg/dL (7-18) 05/10/24 10:49 Creatinine 0.8 mg/dL (0.55-1.02) 05/10/24 10:49 Est GFR (CKD-EPI 2020) 100.33 (mL/min/1.73m2) 05/10/24 10:49 Magnesium 1.9 mg/dL (1.8-2.4) 05/10/24 10:49 Calcium 7.6 mg/dL (8.5-10.1) L 05/10/24 10:49 Albumin 3.1 g/dL (3.4-5.0) L 05/10/24 10:49 Glucose 92 mg/dL (74-106) 05/10/24 10:49 Liver Function Panel: 2 Alanine Aminotransferase (ALT/SGPT) 16 U/L (14-59) 05/10/24 10: 49 Aspartate Amino Transf (AST/SGOT) 12 U/L (15-37) L 05/10/24 10: 49 Coagulation Panel: 2 INR International Normalized Ratio 1.0 (0.9-1.1) 05/10/24 17:5 5 Prothrombin Time 10.3 sec (9.1-11.1) 05/10/24 17:55 Cardiac Panel: 2 Troponin I 4 ng/L (<or=51) 05/10/24 Arterial Blood Gas: 2 No Data to Display Venous Blood Gas: 2 No Data to Display Pancreas Panel: 2 No Data to Display Thyroid Panel: 2 No Data to Display Infectious Disease: 2 No Data to Display Blood Cultures: 2 No Data to Display Toxicology Panel: 2 No Data to Display Panel: 2 No Data to Display Anesthesia Assessment and Plan Anesthesia History Personal History: No History of Anesthesia Complications Family History: No Family History of Anesthesia Complications Exercise Tolerance Exercise Tolerance: Metabolic Equivalents>4 Pertinent Negatives Pertinent Negatives: No Symptoms of GERD, No Major Cardiovascular Symptoms or Complaints and No Major Pulmonary Symptoms or Complaints Cardiac & Pulmonary Exam Cardiac Exam: Normal S1/S2 Heart Sounds Pulmonary Exam: Clear Bilateral Breath Sounds Implantable Cardiac Device Does patient have a Pacemaker or an ICD?: No Airway Exam Known Difficult Airway: No Mallampati Class: 2 Mouth Opening: Narrow (< 3cm) Thyromental Distance: Greater than 3 cm Neck Range of Motion: Full ROM Neck Circumference: Normal Teeth Condition: Normal Dentition Airway Comments: Very narrow mouth, prominent front teeth. ASA Classification ASA Score: ASA 2 Emergency Case?: No NPO Status NPO Status: NPO Clears >2 hours, Solids >8 hours Status Status: Negative HCG Anesthesia Plan Resuscitation Status: Full Code Anesthesia Technique: General Anesthesia Airway Planned: Natural Airway Monitors Used: Standard Monitors
[2024-05-13 11:05] VITALS: BMI 21.2
[2024-05-13] MEDS: Lactated Ringers 1,000 ML 30 ML IV (11:18)
--- NOTE | 2024-05-13 11:30 | BOWEL_PTH ---
PATIENT: JuneIrma LOC: [facility]#:[id number] AGE/SX: 33/F ROOM: RE05/10/[address]: Darien Rodríguez MD : 1990 BED: A DIS: 05/13/2024 SPEC #: [id number] RECD: 05/13/24 13:04 STATUS: NOHEMI REQ #: [id number] RODRIGUEZ: 05/13/24 11:[address]: Darien Rodríguez DEPT: Surgical Specimen RECD BY: Yanira Murillo ENTERED: 05/13/24 13:06 SP TYPE: Bowel OTHR DR: None Tissues: 1 - BIOPSY BOWEL Procedures: GROSS AND MICRO LEVEL 4 Comments: [id number]
--- NOTE | 2024-05-13 11:41 | W.COLOREPORT ---
Date of service: 05/13/24 Time of Service: 11:41 Colonoscopy Report Procedure Description: Procedures performed: 1. Colonoscopy with cold forceps biopsies Preoperative diagnosis: GI bleeding Postoperative diagnosis: Normal terminal ileum, grade 1 internal hemorrhoids, normal colon Surgeon: Radha Rogers MD Indication for procedure: The patient is a 33-year-old woman who had GI bleeding. Normal EGD. Findings: Normal terminal ileum. No evidence of up?stream bleeding. Biopsies taken to rule out inflammatory bowel disease though this is not suspected clinically. Grossly normal colon. No AVM. No diverticular disease. No inflammation. No polyps. Normal rectal vault. Grade 1 internal hemorrhoids. They do not bleed when manipulated. Overall, nothing was found to explain GI bleeding. Surveillance interval/follow-up: Should follow-up with her PCP and get referral to GI for capsule endoscopy(patient may have Meckel's diverticulum or small bowel polyp/tumor). PCP/age 46 for first colorectal cancer screening. Specimens: yes Estimated blood loss: Minimal Complications: None Quality of prep: Excellent Procedure in detail: The patient gave written consent and was in agreement with the indications, the potential risks as well as the benefits of the procedure. They were taken to the endoscopy suite and laid in the left lateral decubitus position. A timeout was performed and anesthesia was administered which was tolerated well. I started the procedure. Digital rectal and visual examination was performed and grossly within normal limits. A well-lubricated flexible colonoscope was then introduced and passed without any notable difficulty all the way to the cecum identified by the ileocecal valve and the appendiceal orifice. The terminal ileum was deeply intubated and looked normal visually. Biopsies were taken. The scope was then slowly withdrawn with the above-noted findings. The patient tolerated the procedure well and was taken to the PACU in hemodynamically stable condition.
--- NOTE | 2024-05-13 11:42 | W.PM.DS.N ---
Date of service: 05/13/24 Time of Service: 11:42 DS: Diagnosis Discharge Diagnosis (1) Gastrointestinal hemorrhage: Status: Acute Discharge Plan Disposition Patient Disposition: Home Condition: Good Discharge Details Reason For Visit: GI Bleed Admit Date/Time: 05/10/24 11:44 Admit Provider: Darien Rodríguez Attending Provider: Darien Rodríguez Primary Care Provider: None,None Hospital Course Hospital Course: 33-year-old woman presented with GI bleeding. She was admitted for observation and did require 1 unit of blood. The bleeding stopped. An EGD was done. There were no findings in the foregut. She underwent a colonoscopy prep and then a colonoscopy. There were no findings in her colon or terminal ileum. She was thus set up for discharge home since her hemoglobin is stable, her vital signs are stable and she has stopped bleeding. She was recommended to establish a PCP and then follow-up with GI at [facility] for capsule endoscopy. Home Meds and New Rx's Prescriptions: No Action No Known Home Meds Discharge Instructions Activity:: Activity as Tolerated Equipment/Supplies:: No Equipment Needed Diet:: Normal Diet DS: Summary Time Spent with Patient providing and/or coordinating discharge services: Greater than 30 minutes Status at Discharge Functional status at discharge: independent ambulation Overall status at discharge: patient is back to baseline Mental Status: mental status grossly normal Speech and Movement: speech and movement normal Mood: congruent mood Affect: normal affect Quality:SDOH Health Related Social Needs: Health related social needs education (Z55.6) Exam Psych Mental Status: mental status grossly normal Speech and Movement: speech and movement normal Mood: congruent mood Affect: normal affect DS: Data Vitals/I&O Vitals and I&O: Vital Signs Temperature 99.0 F 05/13/24 07:34 Temperature Source Temporal Artery Scan 05/13/24 07:34 Pulse 99 H 05/13/24 07:34 Pulse Rhythm Regular 05/10/24 12:31 Pulse 87 05/11/24 10:11 Respiratory Rate 16 05/13/24 07:34 Respiratory Effort Normal 05/10/24 12:31 Respiratory Depth Normal 05/10/24 12:31 Respiratory Pattern Normal 05/10/24 12:31 Blood Pressure 100/60 05/13/24 07:34 Blood Pressure Mean 82 05/11/24 10:16 Blood Pressure Position Supine 05/10/24 10:32 Pulse Oximetry 99 05/13/24 07:34 Oxygen Delivery Method Room Air 05/13/24 07:34 Oxygen Flow Rate 0 05/13/24 07:34 Pain Level 0 05/12/24 20:47 Comment per RN request. let pt sleep 05/12/24 23:35 Comment standing after bathroom 05/10/24 11:45 Intake & Output 05/12/24 05/12/24 05/13/24 11:59 23:59 11:59 Intake Total 220 / 1316.5 1096.5 / 1316.5 216.5 / 216.5 Output Total 500 / 500 Balance -280 / 816.5 1096.5 / 816.5 216.5 / 216.5 Weight 135 lb 12.876 oz Intake: IV 16.5 / 16.5 216.5 / 216.5 Oral 220 / 1300 1080 / 1300 Output: Urine 500 / 500 Other: Urine Color Yellow [place] Yellow Urine Appearance Clear Clear Cloudy Urine Odor Normal None Normal Comment voided into toilet, hat. pT stated she voided per pt voided x1 Stool Size Small Small Stool Characteristics Formed Liquid Liquid Brown PFSH All Active Problems (Updated 05/11/24 @ 11:21 by Gene Rogers MD) Gastrointestinal hemorrhage (Acute) Surgical History (Updated 05/13/24 @ 13:28 by Anita Arredondo) History of esophagogastroduodenoscopy (EGD) (~05/2024) History of colonoscopy (~05/13/24) Social History Smoking/Tobacco Use Status: Never Smoking risk assessment performed?: Yes Alcohol Intake: never Drug use: Never Substance use type: does not use Housing: apartment Do you feel safe at home: Yes Do you feel safe in your relationship?: No Time Spent with Patient Time Spent with Patient: 45-69 minutes Time was spent: preparing to see the patient(eg.review tests), obtaining and/or reviewing separately otained hiistory, ordering medications,tests, procedures, indepentently interpreting results, counseling the patient (And her mother) and care coordination
[2024-05-13 11:48] VITALS: BP 104/70; PULSE 84; RESP 16; TEMP 37.2; O2SAT 99
--- NOTE | 2024-05-13 12:10 | W.ANESPOSTOP ---
Postoperative Evaluation Date, Time and Location Date Performed: 05/13/24 Time Performed: 11:48 Patient Location: Med/Surg Vital Signs Most Recent Imported Vital Signs: Most Recent Vital Signs Temp Pulse Resp BP Pulse Ox 37.2 C 84 16 104/70 99 05/13/24 11:48 05/13/24 11:48 05/13/24 11:48 05/13/24 11:48 05/13/24 11:48 Most Recent Vital Signs Temp Pulse Resp BP Pulse Ox 37.1 C 86 16 109/65 96 05/11/24 08:00 05/11/24 07:13 05/11/24 07:13 05/11/24 07:13 05/11/24 07:13 Pain Score Most Recent Pain Score: Most Recent Pain Score Pain Level [generalized] 0 05/10/24 17:26 Pain Level 1 05/13/24 11:48 Assessment Mental Status: Awake (Alert & Oriented to Patient Baseline) Airway and Respiratory Function: Patent airway with normal (patient baseline) respiratory exam Cardiovascular Function: Hemodynamically Stable Hydration Status: Adequately Hydrated Nausea & Vomiting: No Nausea or Vomiting Pain: Pt. Denies Any Pain Peripheral Nerve Block: Patient did not receive a nerve block
[2024-05-13 12:15] VITALS: BP 104/58; PULSE 88; RESP 16; TEMP 37; O2SAT 99
[2024-05-13 13:40] VITALS: BP 102/54; PULSE 92; RESP 16; TEMP 36.8; O2SAT 96
--- NOTE | 2024-05-13 14:59 | PDOC.CMDIS ---
Date of service: 05/13/24 Time of Service: 14:59 LACE Index Scoring Tool Questions: Length of Stay (in days): 3 Was the patient admitted via the E.D.?: Yes E.D. Visits: 2 Answers: Total Score: 8 Risk of Readmission: Low Risk Care Management Discharge Plan Reason for Hospitalization: GI bleed Discharge Plan: Irma is discharged home via private vehicle with family. Pt will follow up with community providers and discharge plan of care as directed. Irma is encouraged establish care with a PCP and then follow-up with GI at [facility]. No new services are ordered prior to appointment. T-doc follow up on 05/23/24, as scheduled. Patient/Family Education Needs: Review discharge instructions, limitations and plan to follow up with community providers. Discuss ask me three. SDOH Health Related Social Needs: Health related social needs education (Z55.6)
== END 2024-05-13 14:43 | disposition home or self-care (01) ==
LOC: ER 11:28 → MS 12:23
PROVIDERS: Student in an Organized Health Care Education/Training Program; Admitting Provider Surgery; Emergency Provider Student in an Organized Health Care Education/Training Program; Visit Provider Surgery
PROC: 0DJ68ZZ Inspection of Stomach, Via Natural or Artificial Opening Endoscopic (ICD-10-PCS; CPT 43235; principal; 2024-05-11 09:00)
PROC: 0DJD8ZZ Inspection of Lower Intestinal Tract, Via Natural or Artificial Opening Endoscopic (ICD-10-PCS; CPT 45378; principal; 2024-05-13 11:15)
DX: K92.1 Melena (principal); K64.0 First degree hemorrhoids; K64.4 Residual hemorrhoidal skin tags; R42 Dizziness and giddiness
CPT/HCPCS: 43235; 46600; 45380; 00123; 36415; 80053; 81025; 86850; 86900; 86901; 86920; 88305; 93005; 96372; 96374; 96376; 99285; 99309; 99316; 83735; 84484; 85014; 85018; 85025; 85610; 93010; 99310; J0171; J1644; J2405; J2470; J2704; J3490; P9016